=== PATIENT | female | born 1985 | race Caucasian/White ===

== ENCOUNTER 2020-06-13 12:59 | Outpatient (REF) | payer MEDICARE, MEDICAID, SELFPAY ==
--- NOTE | 2020-06-13 13:00 | EEG_ITS ---
The waking background activity consists of an irregular 8 to 9 hertz moderate voltage posterior alpha, intermixed anteriorly with low-voltage fast frequencies. Drowsiness is characterized by diffuse theta slowing. During sleep, symmetrical frontal central sleep spindles developed over both hemispheres. Occasional sharp left hemisphere discharges seen. Arousals are unremarkable. Long periods of diffuse 5 to 6 hertz bursts of theta are seen predominantly from the left hemisphere, sometimes bilateral, but no symptoms are reported during this time. IMPRESSION: No definite diagnostic abnormalities are seen in this 24-hour ambulatory EEG, during which the patient remains asymptomatic. There are few periods of paroxysmal theta of 6 hertz from both hemispheres with the left frontal predominance, which should be correlated clinically. The patient did not report any symptoms during this time. MD WILVER Mcdonnell/DANDY / [id number]
== END 2020-06-13 13:00 | disposition home or self-care (01) ==
LOC: HO.NEURO 12:59
PROVIDERS: PCP Internal Medicine; Visit Provider Psychiatry & Neurology Neurology
DX: G40.909 Epilepsy, unspecified, not intractable, without status epilepticus (principal)
CPT/HCPCS: 95708